=== PATIENT | female | born 1965 | race Caucasian/White ===

== ENCOUNTER 2017-11-23 01:34 | Emergency (ER) | END 2017-11-23 02:40 | disposition left against medical advice (07) ==

== ENCOUNTER 2018-08-03 04:48 | Emergency (ER) | END 2018-08-03 06:46 | disposition home or self-care (01) ==

== ENCOUNTER 2019-04-05 21:49 | Emergency (ER) | payer BC, OTHER ==
[~2019-04-05] VITALS: Ht 165.1 cm; Wt 89.6 kg
[~2019-04-05 21:49] MED LIST: ACYC200C2 PO; AMOX500C2 PO; ANTI INFLAMMATORY PO; DIAZ5TAB4 PO; DOCU-144 PO; GABA300C16 PO; HYDR-762 PO; ONDA4TAB8 PO; POLY17PO6 PO; TRAM50TA PO
[2019-04-05 21:51] VITALS: Ht 165.1 cm; Wt 89.6 kg
[2019-04-05] MEDS ORDERED: FUROSEMIDE 20 MG INJ IV ONE (22:30)
[2019-04-06 00:45] VITALS: BP 128/77; PULSE 67; RESP 16
[2019-04-06] MEDS ORDERED: POTA10TA37 PO (01:18)
[2019-04-06] MEDS ORDERED: FURO-110 PO (01:18)
--- NOTE | 2019-04-06 01:21 | ERD ---
ER Documentation Chief Complaint Chief Complaint leg swelling HPI This is a 53-year-old patient with a history of lupus who is here complaining of off-and-on leg edema. The patient has some swelling to her ankles and feet and lower legs today that seems a bit worse than usual. No shortness of breath no dyspnea on exertion no chest pain denies any CHF, liver, renal disease. She says currently when she lays flat her legs get better and they are better than they were earlier today. She is also complaining of a pain to the right upper quadrant/right mid abdomen that is constant dull for a week ROS All systems reviewed and are negative except as per history of present illness. Medications Home Meds Active Scripts Potassium Chloride* (K-Dur*) 10 Meq Tab.prt.sr, 10 MEQ PO BID for 4 Days, #8 Prov:ASHLEY FALCON DO 04/06/19 Furosemide* (Lasix*) 20 Mg Tablet, 20 MG PO DAILY for 4 Days, #20 TAB Prov:ASHLEY FALCON DO 04/06/19 Diazepam* (Diazepam*) 5 Mg Tablet, 5 MG PO TID for 3 Days, #10 TAB Prov:JI POP MD 09/07/16 Docusate Sodium* (Colace*) 100 Mg Capsule, 100 MG PO TID, #30 CAP Prov:MATILDA CHAVEZ DO 05/05/16 Polyethylene Glycol* (Miralax*) 17 Gm Powd.pack, 17 GM PO DAILY, #7 Prov:MATILDA CHAVEZ DO 05/05/16 Ondansetron Hcl* (Zofran*) 4 Mg Tablet, 4 MG PO Q8H PRN for NAUSEA AND/OR VOMITING, #12 TAB Prov:MATILDA CHAVEZ DO 05/05/16 Reported Medications [Anti Inflammatory] No Conflict Check, PO 05/05/16 Amoxicillin* (Amoxicillin*) 500 Mg Cap, 500 MG PO Q8, #30 CAP 05/05/16 Acyclovir* (Acyclovir*) Unknown Strength Capsule, MG PO DAILY, CAP 05/05/16 Hydrocodone Bit-Acetaminophen* (Medon*) 10-325 Mg Tablet, 1 TAB PO DAILY PRN for PAIN, TAB 05/05/16 Tramadol Hcl* (Ultram*) 50 Mg Tablet, 50 MG PO DAILY PRN for PAIN, TAB 05/05/16 Gabapentin* (Gabapentin*) 300 Mg Capsule, 900 MG PO TID, #270 CAP 05/05/16 Allergies Allergies: Coded Allergies: Sulfa (Sulfonamide Antibiotics) (Verified Allergy, Unknown, 05/05/16) benzoin (Verified Allergy, Unknown, 05/05/16) iodine (Verified Allergy, Unknown, 05/05/16) meperidine (Verified Allergy, Unknown, 05/05/16) ticarcillin (Verified Allergy, Unknown, 05/05/16) PMhx/Soc History of Surgery: Yes (Cholecystectomy. [place]) Anesthesia Reaction: No Hx Neurological Disorder: No Hx Respiratory Disorders: No Hx Cardiac Disorders: Yes (HTN, HYPERLIPIDEMIA ) Hx Psychiatric Problems: No Hx Miscellaneous Medical Probl: Yes (Lupus) Hx Alcohol Use: No Hx Substance Use: No Hx Tobacco Use: No Smoking Status: Never smoker FmHx Family History: No coronary disease Physical Exam Vitals Vital Signs Date Temp Pulse Resp B/P (MAP) Pulse Ox O2 O2 Flow FiO2 Time Delivery Rate 04/06/19 67 16 128/77 99 Room Air 00:45 (94) 04/05/19 97.3 76 18 125/67 97 Room Air 22:08 (86) 04/05/19 97.3 81 18 125/67 97 21:51 (86) Physical Exam Const: Well-developed, well-nourished Head: Atraumatic, normocephalic Eyes: Normal Conjunctiva, PERRLA, EOMI, normal sclera, no nystagmus ENT: Normal External Ears, Nose and Mouth, moist mucus membranes. Neck: Full range of motion. No meningismus, no lymphadenopathy. Resp: Clear to auscultation bilaterally, no wheezing, rhonchi, rales Cardio: Regular rate and rhythm, no murmurs, S1 S2 present Abd: Soft, non tender x 4, non distended. Normal bowel sounds, no guarding or rebound, no pulsitile abdominal masses or bruits Skin: No petechiae or rashes, no ecchymosis , no maculopapular rash Back: No midline or flank tenderness Ext: No cyanosis, trace bilateral pedal edema, FROM x 4, normal inspection, neurovascularly intact x 4 Neur: Awake and alert, STR 5/5 x 4, sensation intact x 4, no focal findings, cerebellum intact Psych: Normal Mood and Affect Const: No acute distress Head: Atraumatic Eyes: Normal Conjunctiva ENT: Normal External Ears, Nose and Mouth. Neck: Full range of motion. No meningismus. Resp: Clear to auscultation bilaterally Cardio: Regular rate and rhythm, no murmurs Abd: Soft, non tender, non distended. Normal bowel sounds Skin: No petechiae or rashes Back: No midline or flank tenderness Ext: No cyanosis, or edema Neur: Awake and alert Psych: Normal Mood and Affect Result Diagram: 04/05/19222104/05/192221 Results 24 hrs Laboratory Tests Test 04/05/19 22:21 04/05/19 22:22 B-Type Natriuretic Peptide 77 PG/ML White Blood Count 9.1 10^3/ul Red Blood Count 4.05 10^6/ul Hemoglobin 12.7 g/dl Hematocrit 38.8 % Mean Corpuscular Volume 95.8 fl Mean Corpuscular Hemoglobin 31.4 pg Mean Corpuscular Hemoglobin Concent 32.7 g/dl Red Cell Distribution Width 11.9 % Platelet Count 253 10^3/UL Mean Platelet Volume 9.1 fl Immature Granulocytes % 0.300 % Neutrophils % 53.1 % Lymphocytes % 37.0 % Monocytes % 8.1 % Eosinophils % 1.0 % Basophils % 0.5 % Nucleated Red Blood Cells % 0.0 /100WBC Immature Granulocytes # 0.030 10^3/ul Neutrophils # 4.8 10^3/ul Lymphocytes # 3.4 10^3/ul Monocytes # 0.7 10^3/ul Eosinophils # 0.1 10^3/ul Basophils # 0.1 10^3/ul Nucleated Red Blood Cells # 0.0 10^3/ul Urine Color YELLOW Urine Clarity CLOUDY Urine pH 5.0 Urine Specific [place] 1.025 Urine Ketones NEGATIVE mg/dL Urine Nitrite NEGATIVE mg/dL Urine Bilirubin NEGATIVE mg/dL Urine Urobilinogen NEGATIVE mg/dL Urine Leukocyte Esterase NEGATIVE Doug/ul Urine Microscopic RBC 1 /HPF Urine Microscopic WBC 8 /HPF Urine Squamous Epithelial Cells MODERATE /HPF Urine Bacteria FEW /HPF Urine Mucus MANY /HPF Urine Hemoglobin 1+ mg/dL Urine Glucose NEGATIVE mg/dL Urine Total Protein NEGATIVE mg/dl Sodium Level 140 mmol/L Potassium Level 3.4 mmol/L Chloride Level 105 mmol/L Carbon Dioxide Level 25 mmol/L Anion Gap 10 Blood Urea Nitrogen 14 mg/dl Creatinine 0.91 mg/dl Est Glomerular Filtrat Rate mL/min > 60 mL/min Glucose Level 85 mg/dl Calcium Level 9.0 mg/dl Total Bilirubin 0.7 mg/dl Direct Bilirubin 0.00 mg/dl Indirect Bilirubin 0.7 mg/dl Aspartate Amino Transf (AST/SGOT) 41 IU/L Alanine Aminotransferase (ALT/SGPT) 49 IU/L Alkaline Phosphatase 95 IU/L Troponin I < 0.012 ng/ml Total Protein 7.2 g/dl Albumin 4.0 g/dl Globulin 3.20 g/dl Albumin/Globulin Ratio 1.25 Lipase 78 U/L Current Medications Medications Dose Sig/Naty Start Time Status Last (Trade) Ordered Route PRN Stop Time Admin Dose Reason Admin Furosemide 20 mg ONCE ONCE 04/05/19 DC 04/05/19 (Lasix) IV 22:30 23:54 04/05/19 22:31 Procedures/[place] [id number] Radiology Main Line: [phone] DIAGNOSTIC IMAGING REPORT Patient: PRETTY MIDDLETON : 1965 Age: 53 Sex: F [id number] DOS: 04/05/192226 Ordering MD: ASHLEY FALCON DO Location: E/R Room/Bed: PROCEDURE: CT Abdomen and Pelvis without contrast. CLINICAL INDICATION: Abdominal pain. TECHNIQUE: A CT scan of the abdomen and pelvis was performed without intravenous contrast. Coronal and sagittal reformatted images were generated. DICOM images are available. Images were reviewed on a high-resolution PACS w orkstation. CTDIvol: 17.88 mGy. DLP: 1092.94 mGy-cm. One or more of the following dose reduction techniques were used: - Automated exposure control. - Adjustment of the mA and/or kV according to patient size. - Use of iterative reconstruction technique. COMPARISON: None. FINDINGS: There are minimal atelectatic changes in the lower lobes. Evaluation of the abdominal and pelvic viscera is limited by the lack of oral and intravenous contrast. The liver is unremarkable. The patient is status post cholecystectomy. The common bile duct is not dilated. The spleen is not enlarged. No pancreatic lesion is identified and there is no pancreatic ductal dilatation. The adrenal glands are unremarkable. The kidneys are normal in size. There is no perinephric fat stranding. No hydr onephrosis is seen. No urinary stone is identified. The small and large bowel are normal in caliber. There is no bowel wall thickening. The appendix is normal. The urinary bladder is unremarkable. The patient is status post hysterectomy. No adnexal mass is seen. No lymphadenopathy is identified. There is no ascites. No pneumoperitoneum is seen. There are minimal arterial calcifications. No suspicious osseous lesion is identified. There is a healed fracture the posterior left ninth rib. IMPRESSION: No inflammation, mass, or lymphadenopathy. No obstructive uropathy or urinary stone. Normal appendix. Status post cholecystectomy and hysterectomy. RPTAT: HTAR .Viral Colbert MD, MD Date Time Electronically viewed and signed by .Viral Colbert MD, MD on 04/06/2019 00:22 .R/ CC: ASHLEY FALCON DO [id number] [place] [id number] Radiology Main Line: [phone] DIAGNOSTIC IMAGING REPORT Patient: PRETTY MIDDLETON : 1965 Age: 53 Sex: F MR #: [id number] DOS: 04/05/19 2208 Ordering MD: KATY DEWEY MD Location: E/R Room/Bed: PROCEDURE: Portable chest x-ray. CLINICAL INDICATION: Abdominal pain. TECHNIQUE: Portable AP view of the chest. COMPARISON: 05/05/2016. FINDINGS: No pulmonary edema or conolidation is identified. The cardiac silhouette is magnified. No pleural effusion is seen. There is no pneumothorax. There is no pneumoperitoneum. IMPRESSION: No evidence of acute cardiopulmonary disease. No pneumoperitoneum. RPTAT: HTAR .Viral Colbert MD, MD Date Time Electronically viewed and signed by .Viral Colbert MD, on 04/06/2019 00:16 .R/ CC: KATY DEWEY MD [id number] Patient is given some Lasix. She has no evidence of heart liver or kidney failure. I can last some bad circulation may be due to her autoimmune condition. We will give her 4 days of Lasix. Departure Diagnosis: Primary Impression: Pedal edema Condition: Stable Patient Instructions: Peripheral Edema, Bilateral ASHLEY FALCON DO Apr 06, 2019 01:20
[2019-04-06] MEDS ORDERED: FUROSEMIDE 20 MG TAB PO ONE (01:30)
== END 2019-04-06 01:31 | disposition home or self-care (01) ==
LOC: E/R 21:49
DX: R60.0 Localized edema (principal); I10 Essential (primary) hypertension
CPT/HCPCS: 36415; 71045; 74176; 80053; 81001; 83690; 83880; 84484; 85025; 93005; 96374; 99285; J1940